=== PATIENT | male | born 1995 | race Caucasian/White ===

== ENCOUNTER 2022-12-22 07:59 | Day surgery (SDC) | payer OTHER ==
[2022-12-22 08:36] LABS: Absolute Lymphocytes (CBC) 2.6 K/uL (0.7-4.9); Hematocrit 47.3 % (39.6-49.0); Lymphocytes % 30.2 % (15.3-44.8); MCV 88.1 fL (80-100); MPV 7.5 fL (7.6-11.3); Platelets 264 thou/uL (152-406); RBC Red Blood Cell Count 5.37 M/uL (4.33-5.43)
[2022-12-22 08:46] LABS: Potassium 3.7 mEq/L (3.5-5.1)
[2022-12-22] MEDS ORDERED: Ringers Lactate 1,000 ML IV ONE (08:48)
[2022-12-22] MEDS ORDERED: FENTANYL CITR 100 MCG/2 ML ONE (11:23)
[2022-12-22] MEDS ORDERED: MIDAZOLAM HCL 2 MG/2 ML INJ ONE (11:23)
[2022-12-22] MEDS ORDERED: propofoL 200 MG/20 ML VIAL IV ONE (11:23)
[2022-12-22] MEDS ORDERED: LIDOCAINE 2% MPF 5 ML VIAL ONE (11:24)
[2022-12-22] MEDS ORDERED: ROCURONIUM 50 MG/5 ML VIAL IV ONE (11:24)
[2022-12-22] MEDS ORDERED: HYDROMORPHONE HCL 2 MG/ML inj ONE (11:25)
[2022-12-22] MEDS: CEFAZOLIN SODIUM 1 GM/VIAL ONE ×2 (11:27→11:39)
[2022-12-22] MEDS ORDERED: CEFAZOLIN SODIUM 1 GM/VIAL ONE (11:40)
[2022-12-22] MEDS ORDERED: ONDANSETRON 4 MG/2 ML VIAL ONE (11:40)
[2022-12-22] MEDS ORDERED: dexAMETHasone 4 MG/ML VIAL ONE (11:41)
[2022-12-22] MEDS ORDERED: GLYCOPYRROLATE 0.2 MG/ML SYR ONE (12:04)
[2022-12-22] MEDS ORDERED: EPHEDRINE SULF 50 MG/ML VIAL ONE (12:06)
--- NOTE | 2022-12-22 12:12 | P.BOP ---
Preoperative diagnosis: tender right inguinal hernia Postoperative diagnosis: same Primary procedure: Laparoscopic repair of tender right inguinal hernia with mesh Estimated blood loss: <10cc Specimen: direct hernia sac Findings: direct and indirect inguinal hernias Anesthesia: General Complications: None Implants: 3D mesh large Transferred to: Recovery Room Condition: Good
[2022-12-22] MEDS ORDERED: NEOSTIGMINE 1 MG/ML -10 ML VIAL ONE (12:14)
[2022-12-22] MEDS ORDERED: KETOROLAC 30 MG/ML INJ ONE (12:14)
[2022-12-22] MEDS ORDERED: Mastisol Adhesive Liq ONE (12:23)
[2022-12-22 14:24] VITALS: BP 129/76; O2SAT 100
[2022-12-22 15:06] VITALS: TEMP 98
[2022-12-22] MEDS ORDERED: TAMSULOSIN 0.4 MG SR CAP ONE (15:08)
--- NOTE | 2022-12-22 19:47 | OP ---
Date of Procedure: 12/22/2022 Surgeon: Parvez Perez MD Preoperative Diagnosis: Tender reducible right inguinal hernia. Postoperative Diagnosis: Tender reducible right inguinal hernia. Procedure: Laparoscopic repair of tender reducible right inguinal hernia with mesh. Specimen: Direct hernia sac. Findings: Direct and indirect hernias. Anesthesia: General plus local. Complications: None. Implant: 3D mesh. Indications: This is a case of a 27-year-old patient who comes to us with a reducible tender right i nguinal hernia. The benefits, alternatives, and risks of repair laparoscopic versus open with mesh f ully explained, which include, but not limited to infection, bleeding, damage to adjacent structures, anesthesia complication, recurrence, [place], and even . He also understands this may not relieve t he symptoms. He might need more than one surgical intervention. He understood, signed a consent. Zandra gates discussed with him also pros and cons of mesh placement and all the questions answered to his satis faction. He signed a consent. The area of concern was marked by me and the patient in the holding r oom. Description Of Procedure: Patient was brought to the operating room, placed in supine position. Ane sthesia was done without complication. Abdomen and inguinal regions were prepped and draped in a danny rile fashion. A time-out was called. After that, we made an incision in the infraumbilical region. Incision was carried down to the anterior rectus sheath on the right side. The muscle was retracted laterally to expose the posterior rectus sheath. The extraperitoneal space was gently developed wit h the help of blunt dissection and a Spacemaker balloon tip trocar was placed in that area, directed to the pubis symphysis and inflated under direct visualization with the scope. The balloon was defla buddy. The area was insufflated. Once we had the camera in, we proceeded to place a 5 mm trocar just above the pubis symphysis and another senior living between the first and the second one. The preperitonea l space was gently developed by exposing the inferior epigastric vessels and keeping them anterior. The Bonilla ligament was dissected laterally to the junction with the iliac veins. The dissection con tinued inferiorly to the iliopubic tract avoiding damage to the femoral branch of the genitofemoral n erve and lateral femoral cutaneous nerve. The cord structures were carefully skeletonized and we not iced 2 hernias. We had a direct hernia first. The hernia was then reduced by gentle traction and th e hernia sac removed. Once we went into the more visualization of the area, we also noticed the gillian ent to have an indirect hernia and there was noted to be small, easily mobilized from the cord struct ures and reduced into the peritoneal cavity. At that moment, I selected a 3D mesh large to place in that region. It was rolled through the one of the trocar sites and placed along the working space. The mesh was placed in a way that cover indirect spaces. The mesh was secured in place with SorbaFix laterally and superior to the iliopubic tract and medial and inferior to the Bonilla ligament. After ensuring adequate hemostasis, we proceeded then to holding the mesh in place and making sure the her kurt sac is still reduced. We allowed the air to escape. The trocars were removed. Balloon deflated and removed and then the anterior rectus sheet was closed with #1 Vicryl. The sponge count and inst rument count were correct. The skin was closed with subcuticular 3-0 chromic and Steri-Strips on top . At the end of the case, testicles were in the scrotum. Patient tolerated the procedure well. [facility] was sent to recovery in stable condition. ADALBERTO/THAD Voice ID: [id number] Report ID: [id number]
--- NOTE | 2022-12-23 06:23 | DS ---
Date of Discharge: 12/22/2022 Diagnosis: Tender reducible right inguinal hernia. Procedure: Laparoscopic repair of tender right inguinal hernia with mesh. Disposition: Home. Condition: Stable. Activity: As tolerated. No heavy lifting. Plan: Follow up in my office in 1 week. Call for appointment at [phone]. Cold compress to the rig ht inguinal region for 24 hours. For medications, see orders. ADALBERTO/THAD Voice ID: [id number] Report ID: [id number]
== END 2022-12-22 15:00 | disposition home or self-care (01) ==
LOC: OR 07:59
PROVIDERS: ATTEND Surgery
PROC: 0YU54JZ Supplement Right Inguinal Region with Synthetic Substitute, Percutaneous Endoscopic Approach (ICD-10-PCS; principal; 2022-12-22 10:15)
DX: K40.90 Unilateral inguinal hernia, without obstruction or gangrene, not specified as recurrent (principal)
CPT/HCPCS: 36415; 80048; 85025; 88302; J0690; J1100; J1170; J2001; J2250; J2405; J2704; J2710; J3010; J7120